=== PATIENT | male | born 1970 | race Caucasian/White ===

== ENCOUNTER 2022-03-28 17:58 | Emergency (ER) | payer BC, OTHER ==
[2022-03-28] MEDS ORDERED: Boostrix 0.5 ML (Tdap) VIAL ONE (18:38)
== END 2022-03-28 18:50 | disposition home or self-care (01) ==
LOC: NAV ERS 17:58
DX: S61.210A Laceration without foreign body of right index finger without damage to nail, initial encounter (principal); W45.8XXA Other foreign body or object entering through skin, initial encounter
CPT/HCPCS: 12001; 90471; 90715

== ENCOUNTER 2022-04-30 11:34 | Emergency (ER) | payer OTHER, BC ==
[2022-04-30] MEDS ORDERED: Lidocaine 1% 20 ML MDV ONE (12:30)
[2022-04-30] MEDS ORDERED: Cephalexin 250 MG CAP ONE (12:39)
[2022-04-30] MEDS ORDERED: Bacitracin 1 PK ONE (12:39)
== END 2022-04-30 12:59 | disposition home or self-care (01) ==
LOC: NAV ERS 11:34
DX: S61.217A Laceration without foreign body of left little finger without damage to nail, initial encounter (principal); S64.497A Injury of digital nerve of left little finger, initial encounter; W26.0XXA Contact with knife, initial encounter; Z79.899 Other long term (current) drug therapy
CPT/HCPCS: 12002

== ENCOUNTER 2022-05-07 20:07 | Emergency (ER) | payer BC, OTHER | END 2022-05-07 20:49 | disposition home or self-care (01) | LOC: NAV ERS 20:07 | DX: S50.812A Abrasion of left forearm, initial encounter (principal); Z79.899 Other long term (current) drug therapy; V49.40XA Driver injured in collision with unspecified motor vehicles in traffic accident, initial encounter | CPT/HCPCS: 99283 ==